=== PATIENT | male | born 1940 | race Native Hawaiian/Other Pacific Islander ===

== ENCOUNTER 2018-02-13 15:35 | Outpatient (CLI) | payer OTHER | END 2018-02-13 19:38 | disposition home or self-care (01) | LOC: LAB 15:35 | DX: D64.9 Anemia, unspecified (principal) | CPT/HCPCS: 85014; 85018 ==

== ENCOUNTER 2018-02-28 08:23 | Outpatient (CLI) | payer OTHER | END 2018-02-28 19:03 | disposition home or self-care (01) | LOC: INF 08:23 | DX: I12.9 Hypertensive chronic kidney disease with stage 1 through stage 4 chronic kidney disease, or unspecified chronic kidney disease (principal); N18.4 Chronic kidney disease, stage 4 (severe); D63.1 Anemia in chronic kidney disease | CPT/HCPCS: 36415; 36430; 36591; 85014; 85018; 86850; 86900; 86901; 86922; P9016 ==

== ENCOUNTER 2018-03-02 14:28 | Outpatient (CLI) | payer OTHER | END 2018-03-02 19:52 | disposition home or self-care (01) | LOC: LAB 14:28 | DX: D64.9 Anemia, unspecified (principal) | CPT/HCPCS: 85018 ==

== ENCOUNTER 2018-03-19 12:51 | Outpatient (CLI) | payer OTHER | END 2018-03-19 20:36 | disposition home or self-care (01) | LOC: LAB 12:51 | DX: D64.89 Other specified anemias (principal) | CPT/HCPCS: 85018 ==

== ENCOUNTER 2018-03-27 13:47 | Outpatient (CLI) | payer OTHER | END 2018-03-27 19:26 | disposition home or self-care (01) | LOC: LAB 13:47 | DX: D64.9 Anemia, unspecified (principal) | CPT/HCPCS: 85014; 85018 ==

== ENCOUNTER 2018-03-31 08:56 | Outpatient (CLI) | payer OTHER ==
[~2018-03-31] VITALS: Ht 180.3 cm; Wt 100.7 kg
== END 2018-03-31 22:39 | disposition home or self-care (01) ==
LOC: INF 08:56
PROC: 30233N1 Transfusion of Nonautologous Red Blood Cells into Peripheral Vein, Percutaneous Approach (ICD-10-PCS; principal; 2018-03-31)
DX: D64.89 Other specified anemias (principal)
CPT/HCPCS: 36430; 36591; 86850; 86900; 86901; 86922; P9016

== ENCOUNTER 2018-04-01 14:28 | Outpatient (CLI) | payer OTHER | END 2018-04-01 19:26 | disposition home or self-care (01) | LOC: LAB 14:28 | DX: D64.9 Anemia, unspecified (principal) | CPT/HCPCS: 85018 ==

== ENCOUNTER 2018-04-13 11:58 | Outpatient (CLI) | payer OTHER | END 2018-04-13 20:01 | disposition home or self-care (01) | LOC: LAB 11:58 | DX: D64.9 Anemia, unspecified (principal) | CPT/HCPCS: 85018 ==

== ENCOUNTER 2018-05-20 14:28 | Outpatient (CLI) | payer OTHER | END 2018-05-20 21:17 | disposition home or self-care (01) | LOC: LAB 14:28 | DX: K95.89 Other complications of other bariatric procedure (principal); E46 Unspecified protein-calorie malnutrition; D40.9 Neoplasm of uncertain behavior of male genital organ, unspecified; K86.1 Other chronic pancreatitis; Z51.81 Encounter for therapeutic drug level monitoring; Z98.84 Bariatric surgery status; Z79.899 Other long term (current) drug therapy; D64.9 Anemia, unspecified | CPT/HCPCS: 85014; 85018 ==

== ENCOUNTER 2018-06-01 14:28 | Outpatient (CLI) | payer OTHER | END 2018-06-01 19:15 | disposition home or self-care (01) | LOC: LAB 14:28 | DX: R53.83 Other fatigue (principal); R53.81 Other malaise; R06.02 Shortness of breath; D50.8 Other iron deficiency anemias | CPT/HCPCS: 85018 ==

== ENCOUNTER 2018-07-10 15:28 | Outpatient (CLI) | payer OTHER | END 2018-07-10 19:05 | disposition home or self-care (01) | LOC: RAD 15:28 | DX: S69.92XA Unspecified injury of left wrist, hand and finger(s), initial encounter (principal) ==

== ENCOUNTER 2018-10-07 14:58 | Outpatient (CLI) | payer OTHER | END 2018-10-07 20:17 | disposition home or self-care (01) | LOC: RAD 14:58 | DX: M25.50 Pain in unspecified joint (principal) ==

== ENCOUNTER 2019-01-27 15:10 | Outpatient (CLI) | payer OTHER | END 2019-01-27 19:55 | disposition home or self-care (01) | LOC: LAB 15:10 | DX: D64.89 Other specified anemias (principal) | CPT/HCPCS: 85018 ==

== ENCOUNTER 2019-06-25 15:42 | Outpatient (CLI) | payer OTHER | END 2019-06-25 16:00 | disposition home or self-care (01) | LOC: LABW 15:42 | DX: D64.89 Other specified anemias (principal) | CPT/HCPCS: 85014; 85018 ==